=== PATIENT | female | born 1945 | race African-American/Black ===

== ENCOUNTER 2019-07-10 21:43 | Emergency (ER) | payer OTHER ==
[~2019-07-10] VITALS: Ht 154.9 cm; Wt 99.8 kg
[2019-07-10 23:26] LABS: Eosinophils # (auto) 0.2 uL; Hemoglobin 10.3 g/dL (12.2-16.2); Mean Corpuscular Volume 74.6 fL (80.0-100.0)
[2019-07-10 23:28] LABS: Basophils # (auto) 0.1 uL; Basophils % (auto) 0.8 % (0.0-2.0); Eosinophils % (auto) 2.2 % (0.0-7.0); Hematocrit 31.9 % (36.0-46.0); Lymphocytes # (auto) 0.8 uL; Lymphocytes % (auto) 10.4 % (10.0-50.0); Mean Corpuscular Hemoglobin 24.1 pg (28.0-32.0); Mean Corpuscular Hgb Conc. 32.3 g/dL (32.0-36.0); Monocytes # (auto) 0.7 uL; Monocytes % (auto) 8.5 % (0.0-12.0); Neutrophils # (auto) 6.2 uL; Neutrophils % (auto) 78.1 % (37.0-80.0); Platelet Count (auto) 226 10^3/uL (140-450); Red Blood Cells 4.28 10^6/uL (4.0-5.20)
[2019-07-10 23:39] LABS: Albumin 2.3 g/dL (3.4-5.0); Anion Gap 12 (5-15); BUN/Creatinine Ratio 8.9; Blood Urea Nitrogen 66 mg/dL (7-18); Calcium 8.1 mg/dL (8.5-10.1); Carbon Dioxide 23 mmol/L (21-32); Chloride 101 mmol/L (98-107); GFR African American 7 mL/min; GFR Non-African American 6 mL/min; Glucose 91 mg/dL (74-106); Potassium 3.7 mmol/L (3.5-5.1); Sodium 136 mmol/L (136-145)
[2019-07-10 23:44] LABS: Alanine Aminotransferase 9 U/L (13-56); Alkaline Phosphatase 66 U/L (45-117); Aspartate Aminotransferase 10 U/L (15-37); Bilirubin, Total 0.5 mg/dL (0.2-1.0); Total Protein 7.3 g/dL (6.4-8.2)
[2019-07-11 06:53] VITALS: BP 144/51
[2019-07-11] MEDS: MORPHINE SULFATE 4 MG/ML SYR/VIAL IV ONE ×2 (07:34→07:39)
[2019-07-11] MEDS: ONDANSETRON HCL 4 MG/2 ML VIAL IV ONE ×2 (07:35→07:40)
[2019-07-11] MEDS ORDERED: traMADol HCL 50 MG TAB PO ONE (07:45)
== END 2019-07-11 08:15 | disposition home or self-care (01) ==
LOC: ER 21:43 → EDBD 21:43 → ER 07-11 08:15
DX: R60.9 Edema, unspecified (principal); G89.4 Chronic pain syndrome; I12.0 Hypertensive chronic kidney disease with stage 5 chronic kidney disease or end stage renal disease; E11.22 Type 2 diabetes mellitus with diabetic chronic kidney disease; N18.6 End stage renal disease; E78.00 Pure hypercholesterolemia, unspecified; Z99.2 Dependence on renal dialysis
CPT/HCPCS: 36415; 71045; 80053; 83880; 84484; 85025; 93005; J2405